=== PATIENT | male | born 1965 | race Caucasian/White ===

== ENCOUNTER 2024-08-14 12:23 | Emergency (ER) | payer BC, SELFPAY ==
[2024-08-14 12:30] VITALS: BP 170/94
--- NOTE | 2024-08-14 14:42 | ED.GENMED ---
History of Present Illness
General
Chief Complaint: Skin Surface Trauma
Source: patient
Exam Limitations: none
Time Seen by Provider: 08/14/24 13:40
Nursing documentation reviewed up to this point in time: agreed with
History of Present Illness
History of Present Illness:
59-year-old male past medical history of diabetes, hypertension hyperlipidemia presenting to the emergency department today with concerns of a cut to his left index finger while cutting brisket prior to arrival. Trouble controlling bleeding which
prompted come to the ER. Denies additional concerns otherwise no numbness or weakness.
Past History
Past History
ED Past Medical History: Asthma, GERD, HTN and Other (Back pain)
ED Past Surgical History: Cholecystectomy
Social History
Tobacco: Non-smoker
Alcohol: None
Drug: None
Personal:
Living: with family
Employment: Employed
Family History
Family History: Other (Coronary artery disease in his father at 57 and non-Hodgkin's lymphoma )
Review of Systems
Review of Systems
Allergies reviewed?: Yes
All Other Systems: ROS reviewed and negative except as documented in HPI and ROS
Phy Exam
Physical Exam
Physical Exam:
GENERAL: Alert , in no apparent distress
EYE: pupils equal and reactive
NECK: Supple, no significant adenopathy.
ENT: o/p clr, mmm.
CARDIAC: Regular rate and rhythm .
LUNGS: Clear breath sounds bilaterally, no acute respiratory distress, no wheezes/rales/rhonchi
ABDOMEN: Soft, without focal tenderness, no r/g, no cvat
NEUROLOGICAL: Alert and oriented, no focal neuro deficits
SKIN: 2.5 cm laceration to the left index finger between the DIP and PIP. Subcutaneous in depth. Warm and dry, skin intact.
MUSCULOSKELETAL: No edema, well perfused.
PSYCH: Normal and appropriate interaction.
Course
Orders/Labs/Results
Orders:
Orders
08/14/24 14:42
Cephalexin Monohydrate [Keflex] 500 mg PO NOW STA
Tetanus/Diphth/Acelpertussis [Adacel] 0.5 ml IM .ONCE ONE
Vital Signs
Initial and Last Documented VS:
Initial Vital Signs
Temp Pulse Resp BP Pulse Ox
98 F 79 16 170/94 95
08/14/24 12:30 08/14/24 12:30 08/14/24 12:30 08/14/24 12:30 08/14/24 12:30
Last Documented Vital Signs
Temp Pulse Resp BP Pulse Ox
98 F 71 18 99/69 99
08/14/24 12:30 08/14/24 15:02 08/14/24 15:02 08/14/24 15:02 08/14/24 15:02
Procedures
Laceration Closure
Left Dorsal Finger:
Status of Wound: clean
Size of Wound in cm: 2.5
Description of Wound Edges: sharp
Preparation: cleaned with saline
Anesthesia: 1% Lidocaine and Digital-Regional
Revision/Debridement: routine- no revision and irrigate-direct pressure
Wound exploration: explored to base- no FB and no tendon involvement
Type of Closure: interrupted sutures
Skin Closure Material: 5-0 nylon
Number of sutures: 3
MDM/Problems Addressed
MDM/Problems Addressed:
67-year-old male presenting to the emergency department today with concerns of laceration to the left index finger. Very clean in appearance was cleaned thoroughly here digital block performed. 3 stitches placed. Advised for follow-up in 12 days
for suture removal. Was started on antibiotics as he does have a history of diabetes. Return precautions given.
*Critical Care Note
Total Time (30-74mins, 75-104mins- exclusive of procedures): Not Applicable
ED Attending Note
-
Portions of this chart may have been created with voice recognition software.� Occasional wrong word or��sound alike� substitutions may have occurred due to the inherent limitations of voice recognition software.
Discharge Plan
Departure
Patient Disposition: Home (Routine Discharge)
Date of Disposition: 08/14/24
Time of Disposition: 14:42
Patient with high blood pressure during this ER visit?: No
Condition: Good
Covid-19: Not Applicable
Discharge Problem:
Finger laceration
Instructions: Laceration Repair With Stitches (DC)
Prescriptions:
New
cephalexin 500 mg tablet
500 mg PO TID 3 Days Qty: 9 0RF
No Action
cetirizine 10 MG tablet
10 mg PO DAILY
aspirin 81 MG tablet,delayed release (DR/EC)
81 mg PO DAILY
benazepril [Lotensin] 10 MG tablet
10 mg PO DAILY
esomeprazole magnesium [Nexium] 20 MG capsule,delayed release(DR/EC)
40 mg PO DAILY
montelukast 10 MG tablet
10 mg PO HS
metformin 500 MG tablet extended release 24 hr
500 mg PO BID
potassium chloride 10 MEQ tablet,ER particles/crystals
10 meq PO HS
cholecalciferol (vitamin D3) 2,000 UNITS tablet
2,000 units PO DAILY
omega 0-sbv-nka-fish oil [Fish Oil] 1 EACH capsule
1 ea PO BID
Probiotic (B. coagulans) 1 EACH tablet,chewable
2 ea PO HS
ibuprofen 400 mg Tablet
400 mg PO Q6HPRN PRN (Reason: back pain)
rosuvastatin 40 mg tablet
40 mg PO QPM
budesonide-formoterol [Symbicort] 160-4.5 mcg/actuation HFA aerosol inhaler
2 puff INHALATION R BID
sucralfate [Carafate] 100 mg/mL suspension
10 ml PO BID Qty: 414 0RF
Referrals:
Eb Barillas DO [Family Provider] -
Activity Restrictions/Additional Instructions:
You came to the emergency department today with concerns of a laceration to your index finger. This was cleaned and closed with 3 stitches. Please take the prescribed antibiotic to reduce risk of infection. Return for any worsening, new or
concerning symptoms.
Interventions
Interventions:
*Risk Screen - Suicide Last Done: 08/14/24 15:00
*General Assessment Last Done: 08/14/24 15:00
*Neglect/Abuse Screening Last Done: 08/14/24 15:00
*ED- Fall Risk Assessment Last Done: 08/14/24 15:00
*ED COVID-19 Vaccine History Last Done: 08/14/24 15:00
*Nursing Disposition Last Done: 08/14/24 15:02
ED-Skin Assessment Last Done: 08/14/24 15:00
Discharge Date and Time
Discharge Date/Time: 08/14/24 15:03
Print Language: [place]
[2024-08-14] MEDS: KEFLEX 500 MG PO (14:56)
[2024-08-14] MEDS: ADACEL 0.5 ML IM (14:56)
[2024-08-14 15:02] VITALS: BP 99/69
== END 2024-08-14 15:03 | disposition home or self-care (01) ==
LOC: EMR 12:23
PROVIDERS: EMERGENCY PHYSICIAN Student in an Organized Health Care Education/Training Program; FAMILY PHYSICIAN Family Medicine
DX: S61.211A Laceration without foreign body of left index finger without damage to nail, initial encounter (principal); W26.0XXA Contact with knife, initial encounter; Y93.G1 Activity, food preparation and clean up; Z23 Encounter for immunization; E11.9 Type 2 diabetes mellitus without complications; I10 Essential (primary) hypertension; E78.5 Hyperlipidemia, unspecified; K21.9 Gastro-esophageal reflux disease without esophagitis; J45.909 Unspecified asthma, uncomplicated; Z90.49 Acquired absence of other specified parts of digestive tract; Z79.82 Long term (current) use of aspirin; Z79.84 Long term (current) use of oral hypoglycemic drugs; Z88.8 Allergy status to other drugs, medicaments and biological substances; Z91.018 Allergy to other foods; Z91.048 Other nonmedicinal substance allergy status
CPT/HCPCS: 64450; 99284; 12041; 90471; 90715